=== PATIENT | female | born 1975 | race Caucasian/White ===

== ENCOUNTER 2017-03-23 08:23 | Emergency (ER) | payer BC ==
[2017-03-23] MEDS: DEXAMETHASONE 10 MG/ML 1 ML INJ IM (10:52)
[2017-03-23] MEDS: ALBUTEROL 0.083% (NEB) 2.5 MG/3 ML AMP HHN (10:57)
[2017-03-23] MEDS: IPRATROPIUM (NEB) 0.5 MG/2.5 ML AMP HHN (10:57)
== END 2017-03-23 12:01 | disposition home or self-care (01) ==
LOC: FTE 08:23
DX: J06.9 Acute upper respiratory infection, unspecified (principal); R07.9 Chest pain, unspecified
CPT/HCPCS: 71045; 87400; 93005; 94644; 96372; 99285-25